=== PATIENT | female | born 1950 | race Caucasian/White ===

== ENCOUNTER 2016-08-25 11:00 | Inpatient (IN) | payer OTHER, BC ==
[~2016-08-25] VITALS: Ht 162.6 cm; Wt 64.4 kg
[~2016-08-25 11:00] MED LIST: ADVAIR 250/501 DISK IH; ADVAIR 500/501 DISK IH; ALPRAZOLAM0.25 M2 PO; ALPRAZOLAM0.5 MG PO; ATROVENT 00.5 MG/2.5 IH; AZITHROMYCIN250 MG PO; AZITHROMYCIN500 M1 PO; BENTYL20 MG PO; BENZONATATE100 MG PO; CEFTIN500 MG PO; CIPRO500 MG PO; CONSTULOSE10 GM/15 M PO; CRESTOR20 MG PO; CYCLOPHOSPHAMID50 M2 PO; DALIRESP500 MCG PO; DILTIAZEM 24HR240 MG PO; DUONEB 2.5-0.5 M3 ML IH; ENDOCET 5-3251 EACH PO; FAMOTIDINE20 MG PO; FISH OIL 1,2001 EAC4 PO; FLAGYL500 MG PO; GABAPENTIN300 MG PO; GABAPENTIN600 MG PO; KRISTALOSE20 GM PO; LEVOFLOXACIN750 MG PO; LEXAPRO20 MG PO; MUCINEX600 MG PO; MYCOSTATIN 100,60 ML PO; POLYETHYLENE GL17 GM PO; PREDNISONE10 MG PO; PROAIR HFA8.5 GM IH; PROTONIX40 MG PO; PROVENTIL HFA6.7 GM IH; PROVENTIL,2.5 MG/3 M IH; SPIRIVA1 INHALATI IH; SSD25GM TP; ST. JOSEPH ASPI81 MG PO; THEO-DUR,THEOC200 MG PO; THEOPHYLLINE400 MG PO; VITAMIN B-121000 MCG PO; VITAMIN B-12500 MC2 PO; VITAMIN B12-FO1 EACH PO; VITAMIN D31000 UNIT PO; ZITHROMAX Z-PA250 MG PO; ZOFRAN ODT4 MG PO
[2016-08-25 12:13] LABS: EOSINOPHIL (%) 0.3 % (0-5); HEMATOCRIT 36.9 % (36.0-46.0); LYMPHOCYTE COUNT 0.1 K/uL (1.0-2.8); MCH 29.1 PG (29.0-34.0); MCHC 31.4 G/DL (30.0-36.0); MCV 92.5 FL (83-99); MEAN PLAT.VOLUME 9.9 uM^3 (9.5-12.4); MONOCYTE (%) 6.6 % (3-12); MONOCYTE COUNT 0.2 K/uL (0-0.8); NEUTROPHIL (%) 87.9 % (45-76); NEUTROPHIL COUNT 2.5 K/uL (1.8-6.4); PLATELET COUNT 166 K/uL (156-360); RBC DIS.WIDTH-CV 14.1 % (11.8-14.6); RBC DIS.WIDTH-SD 45.8 % (39-53); RED BLOOD COUNT 3.99 M/uL (3.80-5.20); WHITE BLOOD COUNT 2.9 K/uL (4.1-10.2)
[2016-08-25 12:22] LABS: CHLORIDE 101 mEq/L (99-109); SODIUM 137 mEq/L (136-147)
[2016-08-25 12:25] LABS: GLUCOSE 96 mg/dL (70-99)
[2016-08-25 12:26] LABS: ANION GAP 11 MEQ/L (2-14)
[2016-08-25 12:26] LABS: INFLUENZA A VIRAL ANTIGEN POSITIVE
[2016-08-25 12:27] LABS: INFLUENZA B VIRAL ANTIGEN NEGATIVE
[2016-08-25 12:27] LABS: TOTAL BILIRUBIN 1.2 mg/dL (0.0-1.0)
[2016-08-25 12:28] LABS: ALKALINE PHOSPHATASE 88 IU/L (3-129); GFR ESTIMATE (CALCULATED) > 59 mL/min/
[2016-08-25 12:29] LABS: UREA NITROGEN (BUN) 8 mg/dL (9-23)
[2016-08-25 12:38] LABS: TROP-I INTERPRETATION NEGATIVE; TROPONIN-I < 0.01 ng/mL (0.0-0.30)
[2016-08-25 12:51] LABS: D-DIMER ELISA 0.86 mg/L FEU (< 0.57)
[2016-08-25] MEDS ORDERED: ESZOPICLONE3 MG PO (15:49)
[2016-08-25] MEDS ORDERED: ARTIFICIAL TEAR15 M1 BOTH EYES (15:51)
[2016-08-25] MEDS ORDERED: SPIRIVA RESPIMAT4 GM IH (15:54)
[2016-08-25] MEDS ORDERED: PROTONIX40 MG PO (16:00)
[2016-08-25 20:24] VITALS: BP 133/74
[2016-08-26 00:54] VITALS: BP 126/81
[2016-08-26 04:27] VITALS: BP 116/64
[2016-08-26 08:00] VITALS: BP 140/60
[2016-08-26 11:10] LABS: BASE EXCESS 6.3 mEq/L (-3 to +3); BICARBONATE 31.8 mEq/L (22-26); CARBOXY HGB 2.3 % (0-5); METHEMOGLOBIN 1.1 % (0-1.5); PCO2 49 mm Hg (35-45); PO2 65 mm Hg (80-100); pH 7.42 (7.35-7.45)
[2016-08-26 11:11] LABS: COMMENTS - BLOOD GASES A+C+; DEVICE NC; O2 FLOW 6 L/MIN; SITE RR; TOTAL RESP RATE 35 resp/min
[2016-08-26 12:00] VITALS: BP 145/80
[2016-08-26 16:00] VITALS: BP 150/58
[2016-08-26 19:39] VITALS: BP 124/64
[2016-08-27] VITALS (7 sets, daily range): BP systolic 120–140; BP diastolic 58–75
[2016-08-27 07:35] LABS: HEMATOCRIT 37.9 % (36.0-46.0); MCH 29.4 PG (29.0-34.0); MCHC 31.1 G/DL (30.0-36.0); MCV 94.5 FL (83-99); MEAN PLAT.VOLUME 10.4 uM^3 (9.5-12.4); PLATELET COUNT 206 K/uL (156-360); RBC DIS.WIDTH-CV 14.3 % (11.8-14.6); RBC DIS.WIDTH-SD 49.2 % (39-53); RED BLOOD COUNT 4.01 M/uL (3.80-5.20)
[2016-08-27 07:52] LABS: ANION GAP 9 MEQ/L (2-14); CHLORIDE 98 MEQ/L (99-109); GFR ESTIMATE (CALCULATED) > 59 mL/min/; GLUCOSE 135 mg/dL (70-99); POTASSIUM 3.9 MEQ/L (3.7-5.4); SAMPLE HEMOLYSIS CHECK 0; SAMPLE ICTERIC CHECK 0; SAMPLE LIPEMIA CHECK 0; SODIUM 141 MEQ/L (136-147); UREA NITROGEN (BUN) 17 mg/dL (9-23)
[2016-08-28] VITALS (11 sets, daily range): BP systolic 103–147; BP diastolic 56–68
[2016-08-28 07:54] LABS: INTERNAL CONTROL VALID? YES
[2016-08-28 09:55] LABS: BICARBONATE 29.9 mEq/L (22-26); CARBOXY HGB 2.4 % (0-5); METHEMOGLOBIN 1.5 % (0-1.5); PCO2 44 mm Hg (35-45); PO2 65 mm Hg (80-100); pH 7.44 (7.35-7.45)
[2016-08-28 09:56] LABS: COMMENTS - BLOOD GASES A+C+; DEVICE NC; O2 FLOW 5 L/MIN; SITE LR; TOTAL RESP RATE 30 resp/min
[2016-08-28 13:01] LABS: TROP-I INTERPRETATION NEGATIVE; TROPONIN-I < 0.01 ng/mL (0.0-0.30)
[2016-08-28 14:20] LABS: METH RESISTANT S AUREUS PCR POSITIVE (NEGATIVE)
[2016-08-28 14:21] LABS: PROBE CHECK PASS
[2016-08-28 18:23] LABS: TROP-I INTERPRETATION NEGATIVE; TROPONIN-I < 0.01 ng/mL (0.0-0.30)
[2016-08-29] VITALS (10 sets, daily range): BP systolic 111–144; BP diastolic 51–77
[2016-08-29 01:19] LABS: TROP-I INTERPRETATION NEGATIVE; TROPONIN-I < 0.01 ng/mL (0.0-0.30)
[2016-08-29 06:28] LABS: HEMATOCRIT 38.3 % (36.0-46.0); MCH 28.2 PG (29.0-34.0); MCV 93.9 FL (83-99); MEAN PLAT.VOLUME 9.6 uM^3 (9.5-12.4); PLATELET COUNT 194 K/uL (156-360); RBC DIS.WIDTH-CV 13.8 % (11.8-14.6); RBC DIS.WIDTH-SD 47.1 % (39-53); RED BLOOD COUNT 4.08 M/uL (3.80-5.20)
[2016-08-29 06:38] LABS: ANION GAP 9 MEQ/L (2-14); CHLORIDE 97 MEQ/L (99-109); GFR ESTIMATE (CALCULATED) > 59 mL/min/; GLUCOSE 175 mg/dL (70-99); POTASSIUM 3.6 MEQ/L (3.7-5.4); SAMPLE HEMOLYSIS CHECK 0; SAMPLE ICTERIC CHECK 0; SAMPLE LIPEMIA CHECK 0; SODIUM 141 MEQ/L (136-147); UREA NITROGEN (BUN) 18 mg/dL (9-23)
[2016-08-30] VITALS (9 sets, daily range): BP systolic 122–156; BP diastolic 59–83
[2016-08-30 12:59] LABS: EOSINOPHIL (%) 0 % (0-5); HEMATOCRIT 39.8 % (36.0-46.0); IMMATURE GRANULOCYTE (%) 0.3 % (0.0-0.7); LYMPHOCYTE COUNT 0.3 K/uL (1.0-2.8); MCH 29.3 PG (29.0-34.0); MCHC 31.2 G/DL (30.0-36.0); MCV 94.1 FL (83-99); MEAN PLAT.VOLUME 9.9 uM^3 (9.5-12.4); MONOCYTE (%) 2.1 % (3-12); MONOCYTE COUNT 0.1 K/uL (0-0.8); NEUTROPHIL (%) 92.6 % (45-76); NEUTROPHIL COUNT 5.4 K/uL (1.8-6.4); PLATELET COUNT 188 K/uL (156-360); RBC DIS.WIDTH-CV 13.8 % (11.8-14.6); RED BLOOD COUNT 4.23 M/uL (3.80-5.20); WHITE BLOOD COUNT 5.9 K/uL (4.1-10.2)
[2016-08-30 13:26] LABS: ANION GAP 10 MEQ/L (2-14); CHLORIDE 98 MEQ/L (99-109); GFR ESTIMATE (CALCULATED) > 59 mL/min/; GLUCOSE 159 mg/dL (70-99); MAGNESIUM 2.2 mg/dl (1.3-2.7); POTASSIUM 3.7 MEQ/L (3.7-5.4); SAMPLE HEMOLYSIS CHECK 0; SAMPLE ICTERIC CHECK 0; SAMPLE LIPEMIA CHECK 0; SODIUM 143 MEQ/L (136-147); UREA NITROGEN (BUN) 15 mg/dL (9-23)
[2016-08-31] VITALS (7 sets, daily range): BP systolic 128–157; BP diastolic 60–66
[2016-08-31 06:12] LABS: EOSINOPHIL (%) 0 % (0-5); HEMATOCRIT 40.7 % (36.0-46.0); IMMATURE GRANULOCYTE (%) 0.6 % (0.0-0.7); LYMPHOCYTE COUNT 0.2 K/uL (1.0-2.8); MCH 28.4 PG (29.0-34.0); MCHC 30.2 G/DL (30.0-36.0); MEAN PLAT.VOLUME 9.9 uM^3 (9.5-12.4); MONOCYTE (%) 2.4 % (3-12); MONOCYTE COUNT 0.2 K/uL (0-0.8); NEUTROPHIL (%) 94.5 % (45-76); NEUTROPHIL COUNT 6.3 K/uL (1.8-6.4); NRBC (%) 0.3 /100 WBC (0-0); PLATELET COUNT 232 K/uL (156-360); RBC DIS.WIDTH-CV 13.8 % (11.8-14.6); RBC DIS.WIDTH-SD 47.3 % (39-53); RED BLOOD COUNT 4.33 M/uL (3.80-5.20); WHITE BLOOD COUNT 6.7 K/uL (4.1-10.2)
[2016-08-31 06:30] LABS: ANION GAP 9 MEQ/L (2-14); CHLORIDE 96 MEQ/L (99-109); GFR ESTIMATE (CALCULATED) > 59 mL/min/; GLUCOSE 163 mg/dL (70-99); POTASSIUM 3.8 MEQ/L (3.7-5.4); SAMPLE HEMOLYSIS CHECK 0; SAMPLE ICTERIC CHECK 0; SAMPLE LIPEMIA CHECK 0; SODIUM 141 MEQ/L (136-147); UREA NITROGEN (BUN) 15 mg/dL (9-23)
[2016-08-31 16:25] LABS: EOSINOPHIL (%) 0 % (0-5); HEMATOCRIT 38.5 % (36.0-46.0); IMMATURE GRANULOCYTE (%) 0.6 % (0.0-0.7); IMMATURE GRANULOCYTE COUNT 0.1 K/uL; LYMPHOCYTE COUNT 0.3 K/uL (1.0-2.8); MCH 28.4 PG (29.0-34.0); MCHC 30.6 G/DL (30.0-36.0); MCV 92.5 FL (83-99); MEAN PLAT.VOLUME 9.6 uM^3 (9.5-12.4); MONOCYTE (%) 2.6 % (3-12); MONOCYTE COUNT 0.2 K/uL (0-0.8); NEUTROPHIL (%) 93.6 % (45-76); NEUTROPHIL COUNT 7.9 K/uL (1.8-6.4); PLATELET COUNT 217 K/uL (156-360); RBC DIS.WIDTH-CV 13.7 % (11.8-14.6); RBC DIS.WIDTH-SD 45.7 % (39-53); RED BLOOD COUNT 4.16 M/uL (3.80-5.20); WHITE BLOOD COUNT 8.5 K/uL (4.1-10.2)
[2016-08-31 16:43] LABS: ANION GAP 7 MEQ/L (2-14); CHLORIDE 97 MEQ/L (99-109); MAGNESIUM 2.2 mg/dl (1.3-2.7); POTASSIUM 3.5 MEQ/L (3.7-5.4); SAMPLE HEMOLYSIS CHECK 0; SAMPLE ICTERIC CHECK 0; SAMPLE LIPEMIA CHECK 0; SODIUM 140 MEQ/L (136-147)
[2016-08-31 16:49] LABS: GFR ESTIMATE (CALCULATED) > 59 mL/min/; GLUCOSE 177 mg/dL (70-99); UREA NITROGEN (BUN) 15 mg/dL (9-23)
[2016-08-31 18:32] LABS: CK-MB 0.9 ng/mL (0.0-4.9)
[2016-08-31 18:34] LABS: TROP-I INTERPRETATION NEGATIVE; TROPONIN-I < 0.01 ng/mL (0.0-0.30)
[2016-08-31 19:16] LABS: CREATINE KINASE 15 IU/L (1-294); TOTAL CK 15 IU/L (1-294)
[2016-09-01] VITALS (10 sets, daily range): BP systolic 115–157; BP diastolic 53–74
[2016-09-01 00:58] LABS: CREATINE KINASE 15 IU/L (1-294); TOTAL CK 15 IU/L (1-294)
[2016-09-01 01:04] LABS: TROP-I INTERPRETATION NEGATIVE; TROPONIN-I < 0.01 ng/mL (0.0-0.30)
[2016-09-01 01:06] LABS: CK-MB 0.9 ng/mL (0.0-4.9)
[2016-09-01 05:47] LABS: TROP-I INTERPRETATION NEGATIVE; TROPONIN-I < 0.01 ng/mL (0.0-0.30)
[2016-09-01 05:51] LABS: MCH 28.1 PG (29.0-34.0); MCHC 29.8 G/DL (30.0-36.0); MCV 94.5 FL (83-99); MEAN PLAT.VOLUME 9.6 uM^3 (9.5-12.4); PLATELET COUNT 226 K/uL (156-360); RBC DIS.WIDTH-CV 13.8 % (11.8-14.6); RBC DIS.WIDTH-SD 47.9 % (39-53); RED BLOOD COUNT 4.34 M/uL (3.80-5.20); WHITE BLOOD COUNT 7.7 K/uL (4.1-10.2)
[2016-09-01 06:15] LABS: CREATINE KINASE 18 IU/L (1-294); TOTAL CK 18 IU/L (1-294)
[2016-09-01 06:17] LABS: ANION GAP 6 MEQ/L (2-14); CHLORIDE 96 MEQ/L (99-109); GFR ESTIMATE (CALCULATED) > 59 mL/min/; GLUCOSE 161 mg/dL (70-99); MAGNESIUM 2.3 mg/dl (1.3-2.7); SAMPLE HEMOLYSIS CHECK 0; SAMPLE ICTERIC CHECK 0; SAMPLE LIPEMIA CHECK 0; SODIUM 142 MEQ/L (136-147); UREA NITROGEN (BUN) 15 mg/dL (9-23)
[2016-09-01 06:18] LABS: EOSINOPHIL (%) 0 % (0-5); IMMATURE GRANULOCYTE (%) 0.7 % (0.0-0.7); IMMATURE GRANULOCYTE COUNT 0.1 K/uL; LYMPHOCYTE COUNT 0.2 K/uL (1.0-2.8); MONOCYTE (%) 2.1 % (3-12); MONOCYTE COUNT 0.2 K/uL (0-0.8); NEUTROPHIL (%) 95.1 % (45-76); NEUTROPHIL COUNT 7.3 K/uL (1.8-6.4)
[2016-09-01 06:31] LABS: POTASSIUM 4.5 MEQ/L (3.7-5.4)
[2016-09-01 07:16] LABS: CK-MB 0.7 ng/mL (0.0-4.9)
[2016-09-01 13:20] LABS: TROP-I INTERPRETATION NEGATIVE; TROPONIN-I < 0.01 ng/mL (0.0-0.30)
[2016-09-01 13:53] LABS: CREATINE KINASE 23 IU/L (1-294); TOTAL CK 23 IU/L (1-294)
[2016-09-01 14:12] LABS: CK-MB 0.7 ng/mL (0.0-4.9)
[2016-09-02] VITALS (13 sets, daily range): BP systolic 125–158; BP diastolic 40–73
[2016-09-02 05:46] LABS: EOSINOPHIL (%) 0 % (0-5); HEMATOCRIT 41.5 % (36.0-46.0); IMMATURE GRANULOCYTE (%) 0.5 % (0.0-0.7); IMMATURE GRANULOCYTE COUNT 0.1 K/uL; LYMPHOCYTE COUNT 0.2 K/uL (1.0-2.8); MCH 28.3 PG (29.0-34.0); MCHC 30.1 G/DL (30.0-36.0); MCV 93.9 FL (83-99); MEAN PLAT.VOLUME 9.5 uM^3 (9.5-12.4); MONOCYTE COUNT 0.2 K/uL (0-0.8); NEUTROPHIL (%) 95.9 % (45-76); NEUTROPHIL COUNT 10.5 K/uL (1.8-6.4); PLATELET COUNT 276 K/uL (156-360); RBC DIS.WIDTH-CV 13.8 % (11.8-14.6); RBC DIS.WIDTH-SD 47.3 % (39-53); RED BLOOD COUNT 4.42 M/uL (3.80-5.20)
[2016-09-02 05:47] LABS: WHITE BLOOD COUNT 10.9 K/uL (4.1-10.2)
[2016-09-02 06:08] LABS: ANION GAP 7 MEQ/L (2-14); CHLORIDE 97 MEQ/L (99-109); GFR ESTIMATE (CALCULATED) > 59 mL/min/; GLUCOSE 165 mg/dL (70-99); MAGNESIUM 2.3 mg/dl (1.3-2.7); POTASSIUM 3.9 MEQ/L (3.7-5.4); SAMPLE HEMOLYSIS CHECK 0; SAMPLE ICTERIC CHECK 0; SAMPLE LIPEMIA CHECK 0; SODIUM 142 MEQ/L (136-147); THEOPHYLLINE 6.7 MCG/ML (10-20); UREA NITROGEN (BUN) 15 mg/dL (9-23)
[2016-09-03] VITALS (7 sets, daily range): BP systolic 129–168; BP diastolic 62–82
[2016-09-03 06:45] LABS: EOSINOPHIL (%) 0 % (0-5); IMMATURE GRANULOCYTE (%) 1.4 % (0.0-0.7); IMMATURE GRANULOCYTE COUNT 0.2 K/uL; INSTRUMENT ABS NEUTROPHIL CT 10.3 K/uL; LYMPHOCYTE COUNT 0.1 K/uL (1.0-2.8); MCH 28.6 PG (29.0-34.0); MCHC 30.5 G/DL (30.0-36.0); MCV 93.8 FL (83-99); MEAN PLAT.VOLUME 9.6 uM^3 (9.5-12.4); MONOCYTE COUNT 0.4 K/uL (0-0.8); NEUTROPHIL (%) 93.6 % (45-76); NEUTROPHIL COUNT 10.3 K/uL (1.8-6.4); PLATELET COUNT 318 K/uL (156-360); RBC DIS.WIDTH-CV 13.2 % (11.8-14.6); RBC DIS.WIDTH-SD 45.5 % (39-53); RED BLOOD COUNT 4.48 M/uL (3.80-5.20)
[2016-09-03 07:13] LABS: ANION GAP 10 MEQ/L (2-14); CHLORIDE 96 MEQ/L (99-109); GFR ESTIMATE (CALCULATED) > 59 mL/min/; GLUCOSE 153 mg/dL (70-99); MAGNESIUM 2.3 mg/dl (1.3-2.7); POTASSIUM 4.4 MEQ/L (3.7-5.4); SAMPLE HEMOLYSIS CHECK 0; SAMPLE ICTERIC CHECK 0; SAMPLE LIPEMIA CHECK 0; SODIUM 145 MEQ/L (136-147); UREA NITROGEN (BUN) 15 mg/dL (9-23)
[2016-09-04 05:14] VITALS: BP 137/66
[2016-09-04 07:23] LABS: EOSINOPHIL (%) 0 % (0-5); HEMATOCRIT 43.6 % (36.0-46.0); IMMATURE GRANULOCYTE COUNT 0.1 K/uL; INSTRUMENT ABS NEUTROPHIL CT 10.4 K/uL; LYMPHOCYTE COUNT 0.1 K/uL (1.0-2.8); MCH 28.9 PG (29.0-34.0); MCHC 30.3 G/DL (30.0-36.0); MCV 95.4 FL (83-99); MEAN PLAT.VOLUME 9.4 uM^3 (9.5-12.4); MONOCYTE (%) 4.2 % (3-12); MONOCYTE COUNT 0.5 K/uL (0-0.8); NEUTROPHIL COUNT 10.4 K/uL (1.8-6.4); PLATELET COUNT 309 K/uL (156-360); RBC DIS.WIDTH-CV 13.4 % (11.8-14.6); RBC DIS.WIDTH-SD 47.5 % (39-53); RED BLOOD COUNT 4.57 M/uL (3.80-5.20); WHITE BLOOD COUNT 11.1 K/uL (4.1-10.2)
[2016-09-04 08:00] VITALS: BP 151/66
[2016-09-04 08:06] LABS: ANION GAP ND MEQ/L (2-14); CHLORIDE 95 MEQ/L (99-109); GFR ESTIMATE (CALCULATED) > 59 mL/min/; GLUCOSE 158 mg/dL (70-99); MAGNESIUM 2.5 mg/dl (1.3-2.7); POTASSIUM 3.9 MEQ/L (3.7-5.4); SAMPLE HEMOLYSIS CHECK 0; SAMPLE ICTERIC CHECK 0; SAMPLE LIPEMIA CHECK 0; SODIUM 143 MEQ/L (136-147); UREA NITROGEN (BUN) 20 mg/dL (9-23)
[2016-09-04 08:08] LABS: CARBON DIOXIDE (BICARBONATE) > 40.0 MEQ/L (20-31)
[2016-09-04 12:00] VITALS: BP 151/64
[2016-09-04 17:15] VITALS: BP 160/71
[2016-09-04 20:15] VITALS: BP 138/63
[2016-09-04 23:47] VITALS: BP 136/57
[2016-09-05 03:04] VITALS: BP 138/70
[2016-09-05 07:21] LABS: ANION GAP 10 MEQ/L (2-14); CHLORIDE 94 MEQ/L (99-109); GFR ESTIMATE (CALCULATED) > 59 mL/min/; GLUCOSE 201 mg/dL (70-99); MAGNESIUM 2.4 mg/dl (1.3-2.7); SAMPLE HEMOLYSIS CHECK 0; SAMPLE ICTERIC CHECK 0; SAMPLE LIPEMIA CHECK 0; SODIUM 143 MEQ/L (136-147); UREA NITROGEN (BUN) 23 mg/dL (9-23)
[2016-09-05 07:26] LABS: POTASSIUM 4.7 MEQ/L (3.7-5.4)
[2016-09-05 07:48] LABS: EOSINOPHIL (%) 0 % (0-5); HEMATOCRIT 45.4 % (36.0-46.0); IMMATURE GRANULOCYTE (%) 0.9 % (0.0-0.7); IMMATURE GRANULOCYTE COUNT 0.1 K/uL; INSTRUMENT ABS NEUTROPHIL CT 13.2 K/uL; LYMPHOCYTE COUNT 0.1 K/uL (1.0-2.8); MCHC 29.7 G/DL (30.0-36.0); MCV 97.6 FL (83-99); MONOCYTE (%) 4.3 % (3-12); MONOCYTE COUNT 0.6 K/uL (0-0.8); NEUTROPHIL (%) 93.9 % (45-76); NEUTROPHIL COUNT 13.2 K/uL (1.8-6.4); PLATELET COUNT 297 K/uL (156-360); RBC DIS.WIDTH-CV 13.5 % (11.8-14.6); RBC DIS.WIDTH-SD 48.1 % (39-53); RED BLOOD COUNT 4.65 M/uL (3.80-5.20)
[2016-09-05 09:10] VITALS: BP 156/72
[2016-09-05 12:00] VITALS: BP 123/72
[2016-09-05 18:20] VITALS: BP 147/51
[2016-09-05 20:22] VITALS: BP 144/70
[2016-09-05 22:56] VITALS: BP 158/70
[2016-09-06 05:00] VITALS: BP 157/87
[2016-09-06 07:20] VITALS: BP 145/66
[2016-09-06 07:23] LABS: EOSINOPHIL (%) 0 % (0-5); HEMATOCRIT 41.1 % (36.0-46.0); IMMATURE GRANULOCYTE (%) 0.5 % (0.0-0.7); IMMATURE GRANULOCYTE COUNT 0.1 K/uL; INSTRUMENT ABS NEUTROPHIL CT 10.4 K/uL; LYMPHOCYTE COUNT 0.1 K/uL (1.0-2.8); MCHC 30.2 G/DL (30.0-36.0); MEAN PLAT.VOLUME 9.6 uM^3 (9.5-12.4); MONOCYTE (%) 3.6 % (3-12); MONOCYTE COUNT 0.4 K/uL (0-0.8); NEUTROPHIL (%) 95.3 % (45-76); NEUTROPHIL COUNT 10.4 K/uL (1.8-6.4); PLATELET COUNT 240 K/uL (156-360); RBC DIS.WIDTH-CV 13.2 % (11.8-14.6); RBC DIS.WIDTH-SD 46.8 % (39-53); RED BLOOD COUNT 4.28 M/uL (3.80-5.20); WHITE BLOOD COUNT 10.9 K/uL (4.1-10.2)
[2016-09-06 07:42] LABS: ANION GAP 6 MEQ/L (2-14); CHLORIDE 96 MEQ/L (99-109); GFR ESTIMATE (CALCULATED) > 59 mL/min/; GLUCOSE 204 mg/dL (70-99); MAGNESIUM 2.3 mg/dl (1.3-2.7); POTASSIUM 4.4 MEQ/L (3.7-5.4); SAMPLE HEMOLYSIS CHECK 0; SAMPLE ICTERIC CHECK 0; SAMPLE LIPEMIA CHECK 0; SODIUM 142 MEQ/L (136-147); UREA NITROGEN (BUN) 19 mg/dL (9-23)
[2016-09-06 11:00] VITALS: BP 132/66
[2016-09-06 15:00] VITALS: BP 139/67
[2016-09-06 19:21] VITALS: BP 143/51
[2016-09-06 23:52] VITALS: BP 147/67
[2016-09-07 04:18] VITALS: BP 123/58
[2016-09-07 07:22] LABS: EOSINOPHIL (%) 0 % (0-5); HEMATOCRIT 40.8 % (36.0-46.0); IMMATURE GRANULOCYTE (%) 0.7 % (0.0-0.7); IMMATURE GRANULOCYTE COUNT 0.1 K/uL; INSTRUMENT ABS NEUTROPHIL CT 10.1 K/uL; LYMPHOCYTE COUNT 0.1 K/uL (1.0-2.8); MCH 28.6 PG (29.0-34.0); MCHC 29.7 G/DL (30.0-36.0); MCV 96.5 FL (83-99); MEAN PLAT.VOLUME 9.9 uM^3 (9.5-12.4); MONOCYTE COUNT 0.3 K/uL (0-0.8); NEUTROPHIL (%) 95.6 % (45-76); NEUTROPHIL COUNT 10.1 K/uL (1.8-6.4); PLATELET COUNT 195 K/uL (156-360); RBC DIS.WIDTH-CV 13.3 % (11.8-14.6); RED BLOOD COUNT 4.23 M/uL (3.80-5.20); WHITE BLOOD COUNT 10.5 K/uL (4.1-10.2)
[2016-09-07 08:08] LABS: ANION GAP ND MEQ/L (2-14); CHLORIDE 96 MEQ/L (99-109); GFR ESTIMATE (CALCULATED) > 59 mL/min/; GLUCOSE 188 mg/dL (70-99); MAGNESIUM 2.3 mg/dl (1.3-2.7); POTASSIUM 4.6 MEQ/L (3.7-5.4); SAMPLE HEMOLYSIS CHECK 0; SAMPLE ICTERIC CHECK 0; SAMPLE LIPEMIA CHECK 0; SODIUM 143 MEQ/L (136-147); UREA NITROGEN (BUN) 16 mg/dL (9-23)
[2016-09-07 08:13] VITALS: BP 137/54
[2016-09-07 08:17] LABS: CARBON DIOXIDE (BICARBONATE) > 40.0 MEQ/L (20-31)
[2016-09-07 12:15] VITALS: BP 145/63
[2016-09-07 16:20] VITALS: BP 141/57
[2016-09-07 19:45] VITALS: BP 145/65
[2016-09-07 23:15] VITALS: BP 158/67
[2016-09-08 03:00] VITALS: BP 135/63
[2016-09-08 07:00] LABS: EOSINOPHIL (%) 0.2 % (0-5); HEMATOCRIT 40.4 % (36.0-46.0); IMMATURE GRANULOCYTE (%) 1.1 % (0.0-0.7); IMMATURE GRANULOCYTE COUNT 0.1 K/uL; INSTRUMENT ABS NEUTROPHIL CT 11.8 K/uL; LYMPHOCYTE COUNT 0.2 K/uL (1.0-2.8); MCH 29.1 PG (29.0-34.0); MCHC 30.4 G/DL (30.0-36.0); MCV 95.5 FL (83-99); MEAN PLAT.VOLUME 10.2 uM^3 (9.5-12.4); MONOCYTE (%) 4.5 % (3-12); MONOCYTE COUNT 0.6 K/uL (0-0.8); NEUTROPHIL (%) 92.6 % (45-76); NEUTROPHIL COUNT 11.8 K/uL (1.8-6.4); PLATELET COUNT 155 K/uL (156-360); RBC DIS.WIDTH-CV 13.1 % (11.8-14.6); RBC DIS.WIDTH-SD 45.6 % (39-53); RED BLOOD COUNT 4.23 M/uL (3.80-5.20); WHITE BLOOD COUNT 12.7 K/uL (4.1-10.2)
[2016-09-08 07:20] LABS: ANION GAP 6 MEQ/L (2-14); CHLORIDE 99 MEQ/L (99-109); GFR ESTIMATE (CALCULATED) > 59 mL/min/; MAGNESIUM 2.2 mg/dl (1.3-2.7); POTASSIUM 4.1 MEQ/L (3.7-5.4); SAMPLE HEMOLYSIS CHECK 0; SAMPLE ICTERIC CHECK 0; SAMPLE LIPEMIA CHECK 0; SODIUM 144 MEQ/L (136-147); UREA NITROGEN (BUN) 17 mg/dL (9-23)
[2016-09-08 07:21] LABS: GLUCOSE 109 mg/dL (70-99)
[2016-09-08 08:00] VITALS: BP 121/61
[2016-09-08 11:43] VITALS: BP 115/60
[2016-09-08 16:29] VITALS: BP 120/64
[2016-09-08 19:30] VITALS: BP 151/62
[2016-09-08 23:00] VITALS: BP 139/52
[2016-09-09 03:30] VITALS: BP 135/62
[2016-09-09 07:20] LABS: EOSINOPHIL (%) 0.3 % (0-5); HEMATOCRIT 37.5 % (36.0-46.0); IMMATURE GRANULOCYTE (%) 0.9 % (0.0-0.7); IMMATURE GRANULOCYTE COUNT 0.1 K/uL; INSTRUMENT ABS NEUTROPHIL CT 9.1 K/uL; LYMPHOCYTE COUNT 0.1 K/uL (1.0-2.8); MCH 29.2 PG (29.0-34.0); MCHC 30.1 G/DL (30.0-36.0); MCV 96.9 FL (83-99); MEAN PLAT.VOLUME 10.4 uM^3 (9.5-12.4); MONOCYTE (%) 3.5 % (3-12); MONOCYTE COUNT 0.3 K/uL (0-0.8); NEUTROPHIL (%) 93.9 % (45-76); NEUTROPHIL COUNT 9.1 K/uL (1.8-6.4); PLATELET COUNT 127 K/uL (156-360); RBC DIS.WIDTH-CV 13.2 % (11.8-14.6); RBC DIS.WIDTH-SD 46.7 % (39-53); RED BLOOD COUNT 3.87 M/uL (3.80-5.20); WHITE BLOOD COUNT 9.7 K/uL (4.1-10.2)
[2016-09-09 07:34] LABS: ANION GAP ND MEQ/L (2-14); CHLORIDE 97 MEQ/L (99-109); GFR ESTIMATE (CALCULATED) > 59 mL/min/; GLUCOSE 95 mg/dL (70-99); POTASSIUM 4.2 MEQ/L (3.7-5.4); SAMPLE HEMOLYSIS CHECK 0; SAMPLE ICTERIC CHECK 0; SAMPLE LIPEMIA CHECK 0; SODIUM 146 MEQ/L (136-147); UREA NITROGEN (BUN) 12 mg/dL (9-23)
[2016-09-09 07:39] LABS: CARBON DIOXIDE (BICARBONATE) > 40.0 MEQ/L (20-31)
[2016-09-09 08:00] VITALS: BP 111/56
[2016-09-09] MEDS ORDERED: AZITHROMYCIN500 M1 PO (11:18)
[2016-09-09] MEDS ORDERED: DUONEB 2.5-0.5 M3 ML AEROSOL (11:18)
[2016-09-09] MEDS ORDERED: CYCLOPHOSPHAMID50 M2 PO (11:18)
[2016-09-09] MEDS ORDERED: PREDNISONE10 MG PO (11:18)
[2016-09-09 11:35] VITALS: BP 140/72
[2016-09-09] MEDS ORDERED: CYCLOPHOSPHAMID PO (11:57)
== END 2016-09-09 14:28 | DRG 190 ==
LOC: EME 11:00 → EDOF 15:11 → 4EAST 15:11 → 5SOUTH 15:11 → 4WEST 08-28 13:02 → 4EAST 09-03 02:02
PROVIDERS: Emergency Medicine; Internal Medicine; Internal Medicine Infectious Disease; Internal Medicine Nephrology
PROC: 5A09358 Assistance with Respiratory Ventilation, Less than 24 Consecutive Hours, Intermittent Positive Airway Pressure (ICD-10-PCS; principal; 2016-08-26)
DX: J44.1 Chronic obstructive pulmonary disease with (acute) exacerbation (principal); J15.9 Unspecified bacterial pneumonia; J96.21 Acute and chronic respiratory failure with hypoxia; E87.2 Acidosis; J96.22 Acute and chronic respiratory failure with hypercapnia; J98.11 Atelectasis; K21.9 Gastro-esophageal reflux disease without esophagitis; F41.9 Anxiety disorder, unspecified; I48.0 Paroxysmal atrial fibrillation; M54.9 Dorsalgia, unspecified; G47.33 Obstructive sleep apnea (adult) (pediatric); E87.6 Hypokalemia; J09.X2 Influenza due to identified novel influenza A virus with other respiratory manifestations; D72.819 Decreased white blood cell count, unspecified; E78.5 Hyperlipidemia, unspecified; Z99.81 Dependence on supplemental oxygen; Z87.891 Personal history of nicotine dependence; Z91.013 Allergy to seafood; Z86.711 Personal history of pulmonary embolism; Z86.718 Personal history of other venous thrombosis and embolism; Z88.8 Allergy status to other drugs, medicaments and biological substances
CPT/HCPCS: 36600; 71010; 71020; 71275; 80048; 80048 91; 80053; 80198; 82550; 82550 91; 82553; 82803; 83735; 83880; 84100; 84145 90; 84484; 85025; 85025 91; 85027; 85379; 87040; 87070; 87205; 87449; 87502; 87641; 93005; 93306; 94002; 94640; 94640 76; 94644; 94660; 94760; 94799; 97530 GO; 97530 GP; 99202; 99281; 99285; J0696; J1100; J1170; J1200; J1650; J2270; J2405; J2765; J2920; J2930; J7050; J7512; J8530

== ENCOUNTER 2016-09-24 14:25 | Inpatient (IN) | payer OTHER, BC ==
[~2016-09-24] VITALS: Ht 162.6 cm; Wt 70.8 kg
[2016-09-24] VITALS (7 sets, daily range): BP systolic 108–152; BP diastolic 60–74
[~2016-09-24 14:25] MED LIST changes: +ARTIFICIAL TEAR15 M1 BOTH EYES; +CYCLOPHOSPHAMID PO; +DUONEB 2.5-0.5 M3 ML AEROSOL; +ESZOPICLONE3 MG PO; +SPIRIVA RESPIMAT4 GM IH
[2016-09-24 15:14] LABS: CHLORIDE 96 mEq/L (99-109); POTASSIUM 3.8 mEq/L (3.7-5.4); SODIUM 137 mEq/L (136-147)
[2016-09-24 15:16] LABS: GLUCOSE 124 mg/dL (70-99)
[2016-09-24 15:17] LABS: ANION GAP 10 MEQ/L (2-14)
[2016-09-24 15:20] LABS: GFR ESTIMATE (CALCULATED) > 59 mL/min/
[2016-09-24 15:21] LABS: UREA NITROGEN (BUN) 7 mg/dL (9-23)
[2016-09-24 15:30] LABS: HEMATOCRIT 26.3 % (36.0-46.0); MCH 29.7 PG (29.0-34.0); MCHC 31.2 G/DL (30.0-36.0); MCV 95.3 FL (83-99); MEAN PLAT.VOLUME 9.3 uM^3 (9.5-12.4); NRBC (%) 4.3 /100 WBC (0-0); PLATELET COUNT 176 K/uL (156-360); RBC DIS.WIDTH-CV 18.2 % (11.8-14.6); RBC DIS.WIDTH-SD 62.8 % (39-53); RED BLOOD COUNT 2.76 M/uL (3.80-5.20)
[2016-09-24] MEDS ORDERED: TYLENOL REGULA325 MG PO (16:03)
[2016-09-24] MEDS ORDERED: PHILLIPS'400 MG/5 M PO (16:04)
[2016-09-24] MEDS ORDERED: DULCOLAX10 MG PR (16:05)
[2016-09-24] MEDS ORDERED: FLEET ENEMA-AD118 ML PR (16:05)
[2016-09-24] MEDS ORDERED: CYCLOPHOSPHAMID PO (16:07)
[2016-09-24] MEDS ORDERED: BUSPAR5 MG PO (16:10)
[2016-09-24] MEDS ORDERED: TRAZODONE HCL50 MG PO (16:21)
[2016-09-24] MEDS ORDERED: NYSTATIN100000 UN1 PO (16:21)
[2016-09-24] MEDS ORDERED: DUONEB 2.5-0.5 M3 ML AEROSOL (16:22)
[2016-09-24] MEDS ORDERED: ROBITUSSIN100 MG/5 M PO (16:22)
[2016-09-24] MEDS ORDERED: ACYCLOVIR400 MG PO (16:22)
[2016-09-24 16:35] LABS: BILIRUBIN NEGATIVE; BLOOD NEGATIVE; COLOR YELLOW ((YELLOW)); GLUCOSE (STRIP) NEGATIVE; KETONES NEGATIVE; LEUKOCYTES NEGATIVE; NITRITE NEGATIVE; PROTEIN (STRIP) NEGATIVE; SPECIFIC GRAVITY 1.015 (1.000-1.030)
[2016-09-24 16:36] LABS: WHITE BLOOD COUNT 0.5 K/uL (4.1-10.2)
[2016-09-24 16:37] LABS: ADD MIUA? NO; UCUL ADDED? NO
[2016-09-24 23:03] LABS: METH RESISTANT S AUREUS PCR POSITIVE (NEGATIVE)
[2016-09-24 23:07] LABS: PROBE CHECK PASS
[2016-09-25 01:10] VITALS: BP 111/60
[2016-09-25 03:01] LABS: HEMATOCRIT 34.3 % (36.0-46.0); MCV 92.7 FL (83-99)
[2016-09-25 03:45] VITALS: BP 116/60
[2016-09-25 07:01] LABS: ALKALINE PHOSPHATASE 64 IU/L (3-129); ANION GAP 6 MEQ/L (2-14); CHLORIDE 100 MEQ/L (99-109); GFR ESTIMATE (CALCULATED) > 59 mL/min/; GLUCOSE 128 mg/dL (70-99); POTASSIUM 4.4 MEQ/L (3.7-5.4); SAMPLE HEMOLYSIS CHECK 0; SAMPLE ICTERIC CHECK 0; SAMPLE LIPEMIA CHECK 0; SODIUM 141 MEQ/L (136-147); TOTAL BILIRUBIN 1.1 MG/DL (0.0-1.0); UREA NITROGEN (BUN) 8 mg/dL (9-23)
[2016-09-25 07:02] LABS: HEMATOCRIT 34.1 % (36.0-46.0); MCH 28.5 PG (29.0-34.0); MCHC 30.8 G/DL (30.0-36.0); MCV 92.7 FL (83-99); NRBC (%) 4.3 /100 WBC (0-0); PLATELET COUNT 163 K/uL (156-360); RBC DIS.WIDTH-CV 18.4 % (11.8-14.6); RBC DIS.WIDTH-SD 60.9 % (39-53)
[2016-09-25 07:08] LABS: RED BLOOD COUNT 3.68 M/uL (3.80-5.20); WHITE BLOOD COUNT 0.5 K/uL (4.1-10.2)
[2016-09-25 12:24] VITALS: BP 125/68
[2016-09-25 13:11] LABS: HEMATOCRIT 32.4 % (36.0-46.0); MCV 91.8 FL (83-99)
[2016-09-25 15:35] VITALS: BP 117/54
[2016-09-25 19:00] VITALS: BP 150/66
[2016-09-25 19:31] LABS: HEMATOCRIT 31.8 % (36.0-46.0); MCV 92.4 FL (83-99)
[2016-09-25 23:00] VITALS: BP 132/60
[2016-09-26 00:35] LABS: HEMATOCRIT 32.8 % (36.0-46.0); MCV 92.7 FL (83-99)
[2016-09-26 03:00] VITALS: BP 130/63
[2016-09-26 07:39] LABS: HEMATOCRIT 32.2 % (36.0-46.0); MCH 28.7 PG (29.0-34.0); MCHC 30.7 G/DL (30.0-36.0); MCV 93.3 FL (83-99); MEAN PLAT.VOLUME 9.3 uM^3 (9.5-12.4); PLATELET COUNT 186 K/uL (156-360); RBC DIS.WIDTH-CV 18.1 % (11.8-14.6); RBC DIS.WIDTH-SD 61.1 % (39-53); RED BLOOD COUNT 3.45 M/uL (3.80-5.20); WHITE BLOOD COUNT 1.6 K/uL (4.1-10.2)
[2016-09-26 07:54] LABS: ABS NEUTROPHIL COUNT 1.5; ANISOCYTOSIS 1+; ATYPICAL LYMPHOCYTE 0.9 %; BAND NEUTROPHILS 10.5 % (0-8.0); EOSINOPHIL ABS CT 0; IMM.RETIC FRACTION 20.2 % (3-19); INSTRUMENT ABS NEUTROPHIL CT 1.4 K/uL; LYMPHOCYTES 0.9 % (15.0-45.0); MICROCYTOSIS 1+; NUCLEATED RBC'S 0.9; PLAT.SUFFICIENCY ADEQUATE; POLYCHROMASIA 2+; RETIC HGB EQUIVALENT 26.9 (28-36); SEG.NEUTROPHILS 81.6 % (46.0-76.0)
[2016-09-26 08:47] VITALS: BP 117/57
[2016-09-26 11:05] LABS: GFR ESTIMATE (CALCULATED) > 59 mL/min/
[2016-09-26 12:27] LABS: HEMATOCRIT 34.2 % (36.0-46.0); MCV 93.4 FL (83-99)
[2016-09-26 13:08] VITALS: BP 136/68
[2016-09-26 17:13] VITALS: BP 149/65
[2016-09-26 19:30] VITALS: BP 127/58
[2016-09-26 19:30] LABS: HEMATOCRIT 32.8 % (36.0-46.0)
[2016-09-26 23:36] VITALS: BP 114/55
[2016-09-27 00:43] LABS: MCV 94.6 FL (83-99)
[2016-09-27 04:15] VITALS: BP 111/55
[2016-09-27 07:30] VITALS: BP 148/63
[2016-09-27 07:55] LABS: HEMATOCRIT 32.2 % (36.0-46.0); MCH 28.7 PG (29.0-34.0); MCHC 30.1 G/DL (30.0-36.0); MCV 95.3 FL (83-99); MEAN PLAT.VOLUME 9.5 uM^3 (9.5-12.4); PLATELET COUNT 204 K/uL (156-360); RBC DIS.WIDTH-CV 17.9 % (11.8-14.6); RBC DIS.WIDTH-SD 61.6 % (39-53); RED BLOOD COUNT 3.38 M/uL (3.80-5.20)
[2016-09-27 08:02] LABS: WHITE BLOOD COUNT 3.4 K/uL (4.1-10.2)
[2016-09-27 08:06] LABS: IRON 56 MCG/DL (35-150)
[2016-09-27 12:23] VITALS: BP 125/58
[2016-09-27 16:41] VITALS: BP 129/60
[2016-09-27 19:14] LABS: HEMATOCRIT 36.7 % (36.0-46.0); MCV 94.8 FL (83-99)
[2016-09-27 19:49] VITALS: BP 112/70
[2016-09-28] VITALS (7 sets, daily range): BP systolic 135–158; BP diastolic 47–70
[2016-09-28 14:13] LABS: Flow Clinical Information R/O LYMPHOMA (()); Flow Number of Markers 22 (()); Flow Spec Viability 96 % (()); Flow Specimen Type PERIPHERAL BLOOD (())
[2016-09-29 03:35] VITALS: BP 162/72
[2016-09-29 06:07] LABS: HEMATOCRIT 33.7 % (36.0-46.0); MCH 28.4 PG (29.0-34.0); MCHC 29.4 G/DL (30.0-36.0); MCV 96.6 FL (83-99); MEAN PLAT.VOLUME 8.9 uM^3 (9.5-12.4); PLATELET COUNT 197 K/uL (156-360); RBC DIS.WIDTH-CV 17.1 % (11.8-14.6); RED BLOOD COUNT 3.49 M/uL (3.80-5.20); WHITE BLOOD COUNT 4.2 K/uL (4.1-10.2)
[2016-09-29 07:01] LABS: EOSINOPHIL (%) 0 % (0-5); IMMATURE GRANULOCYTE (%) 2.2 % (0.0-0.7); IMMATURE GRANULOCYTE COUNT 0.1 K/uL; INSTRUMENT ABS NEUTROPHIL CT 3.6 K/uL; LYMPHOCYTE COUNT 0.1 K/uL (1.0-2.8); MONOCYTE (%) 7.9 % (3-12); MONOCYTE COUNT 0.3 K/uL (0-0.8); NEUTROPHIL (%) 86.8 % (45-76); NEUTROPHIL COUNT 3.6 K/uL (1.8-6.4); PLAT.SUFFICIENCY ADEQUATE
[2016-09-29 07:44] VITALS: BP 135/58
[2016-09-29 15:42] VITALS: BP 169/75
[2016-09-29 17:26] VITALS: BP 152/60
[2016-09-29 20:05] VITALS: BP 153/67
[2016-09-29 23:47] VITALS: BP 140/65
[2016-09-30 03:15] VITALS: BP 132/62
[2016-09-30 06:06] LABS: HEMATOCRIT 34.1 % (36.0-46.0); MCH 28.9 PG (29.0-34.0); MCHC 30.2 G/DL (30.0-36.0); MCV 95.5 FL (83-99); MEAN PLAT.VOLUME 9.2 uM^3 (9.5-12.4); PLATELET COUNT 202 K/uL (156-360); RBC DIS.WIDTH-CV 16.7 % (11.8-14.6); RBC DIS.WIDTH-SD 58.5 % (39-53); RED BLOOD COUNT 3.57 M/uL (3.80-5.20); WHITE BLOOD COUNT 3.6 K/uL (4.1-10.2)
[2016-09-30 07:20] VITALS: BP 137/63
[2016-09-30 07:39] LABS: EOSINOPHIL (%) 0 % (0-5); IMMATURE GRANULOCYTE (%) 4.8 % (0.0-0.7); IMMATURE GRANULOCYTE COUNT 0.2 K/uL; INSTRUMENT ABS NEUTROPHIL CT 2.8 K/uL; LYMPHOCYTE COUNT 0.1 K/uL (1.0-2.8); MONOCYTE (%) 13.2 % (3-12); MONOCYTE COUNT 0.5 K/uL (0-0.8); NEUTROPHIL (%) 78.9 % (45-76); NEUTROPHIL COUNT 2.8 K/uL (1.8-6.4)
[2016-09-30 15:41] VITALS: BP 160/66
[2016-09-30 18:31] VITALS: BP 151/78
[2016-09-30 23:37] VITALS: BP 115/54
[2016-10-01 02:38] VITALS: BP 148/66
[2016-10-01 08:34] VITALS: BP 130/58
[2016-10-01] MEDS ORDERED: DUONEB 2.5-0.5 M3 ML AEROSOL (11:04)
[2016-10-01] MEDS ORDERED: PREDNISONE10 MG PO (11:08)
[2016-10-01 12:19] VITALS: BP 175/72
== END 2016-10-01 14:00 | DRG 378 ==
LOC: EME 14:25 → EDOF 17:00 → 4EAST 17:00 → 5EAST 09-28 22:52
PROVIDERS: Emergency Medicine; Internal Medicine; Internal Medicine Gastroenterology; Internal Medicine Hematology & Oncology
PROC: 30233N1 Transfusion of Nonautologous Red Blood Cells into Peripheral Vein, Percutaneous Approach (ICD-10-PCS; principal; 2016-09-24)
DX: K92.2 Gastrointestinal hemorrhage, unspecified (principal); J44.1 Chronic obstructive pulmonary disease with (acute) exacerbation; J96.11 Chronic respiratory failure with hypoxia; K57.92 Diverticulitis of intestine, part unspecified, without perforation or abscess without bleeding; D64.9 Anemia, unspecified; Z99.81 Dependence on supplemental oxygen; J45.909 Unspecified asthma, uncomplicated; E66.9 Obesity, unspecified; G47.33 Obstructive sleep apnea (adult) (pediatric); Z86.718 Personal history of other venous thrombosis and embolism; Z86.711 Personal history of pulmonary embolism; I10 Essential (primary) hypertension; F17.210 Nicotine dependence, cigarettes, uncomplicated; D70.9 Neutropenia, unspecified; R50.9 Fever, unspecified; D69.59 Other secondary thrombocytopenia; T45.1X5A Adverse effect of antineoplastic and immunosuppressive drugs, initial encounter
CPT/HCPCS: 71010; 80048 91; 80053; 80202; 81003; 82565; 82607; 82746; 83540; 83605; 84466; 85014; 85018; 85025; 85027; 85045; 86850; 86900; 86901; 86920; 87040; 87641; 88184 90; 88185 90; 88189 90; 93005; 94640; 94640 76; 94660; 94760; 94799; 97530 GP; 99202; 99281; 99285; C9113; J1447; J2543; J2920; J3370; J7030; J7050; J7512; P9016